=== PATIENT | female | born 1985 | race Two or more races ===

== ENCOUNTER → 2021-04-23 08:17 | Outpatient (CLI) | payer OTHER | END | disposition home or self-care (01) | LOC: LAB 08:17 | PROVIDERS: ATTEND Plastic Surgery | DX: E66.01 Morbid (severe) obesity due to excess calories (principal) ==

== ENCOUNTER → 2021-09-03 08:00 | Outpatient (CLI) | payer OTHER | END | disposition home or self-care (01) | LOC: LAB 08:00 → ADM 08:30 → CIR.AMB 09-04 07:00 → EDSTATUS 09-04 08:30 | PROVIDERS: ATTEND Plastic Surgery | DX: E66.01 Morbid (severe) obesity due to excess calories (principal); N62 Hypertrophy of breast ==